=== PATIENT | female | born 1970 | race Two or more races ===

== ENCOUNTER 2016-10-23 10:52 | Day surgery (SDC) | payer OTHER ==
[~2016-10-23 10:52] MED LIST: PROPOFOL INJ 200 MG/20 ML VIAL IV ONE
[2016-10-23 12:48] VITALS: BP 107/70
--- NOTE | 2016-10-23 14:21 | Operative Report ---
Operative Report DATE OF SURGERY: 10/23/16 Operative Report: The risks, benefits and alternatives of the procedure including risks of bleeding, perforation requiring surgery are expected to the patient detail and informed consent is obtained. Patient is brought back to the endoscopy suite and placed in a left, lateral decubital position. Timeout is called. A rectal examination was done which did not reveal any masses tears or fissures. An Olympus videoscope was inserted into the patient's rectum. Keeping the lumen in site at all times the scope was then gradually advanced all the way to the cecum. The cecum was identified by the usual anatomical landmarks of the ileocecal valve as well as the appendiceal office. Photodocumentation was obtained ,prep is good the scope was then sequentially pulled back via the various segments of the colon including the ascending colon, hepatic flexure, transverse colon, splenic flexure, descending colon, and finally into the rectosigmoid portions of the colon. Retroflexion maneuvers performed. PREOPERATIVE DIAGNOSIS: Follow-up of and appendiceal mucinous tumor POSTOPERATIVE DIAGNOSIS: The appendix itself noted to be normal. Small lesion noted adjacent to that biopsies obtained, no other significant findings noted. No masses, AVMs, diverticulosis noted. Mild internal hemorrhoids OPERATION: Colonoscopy with biopsy SURGEON: MIGUEL HANKS ANESTHESIA: LMAC TISSUE REMOVED OR ALTERED: Cecal specimen obtained COMPLICATIONS: None. ESTIMATED BLOOD LOSS: none. INTRAOPERATIVE FINDINGS: As described above. PROCEDURE: Patient tolerated the procedure well. No immediate postprocedure complications are noted. Patient is discharged in good condition. Discharge date 10/23/2016. Discharge diet: Regular. Discharge activity: Regular. She'll need a surveillance colonoscopy in 3-5 years. Patient is instructed to call the office or proceed to the emergency room should there be any further problems or questions. Patient does have a 2-3 week appointment to discuss findings. We'll await on biopsies
== END 2016-10-23 12:50 | disposition home or self-care (01) ==
LOC: END 10:52
PROVIDERS: ATTEND Internal Medicine Gastroenterology
PROC: 0DBH8ZX Excision of Cecum, Via Natural or Artificial Opening Endoscopic, Diagnostic (ICD-10-PCS; principal; 2016-10-23 13:30)
DX: D37.3 Neoplasm of uncertain behavior of appendix (principal); K64.8 Other hemorrhoids; Z79.899 Other long term (current) drug therapy
CPT/HCPCS: 45380; 88305 ×2; J2704; 810